=== PATIENT | female | born 1985 ===

== ENCOUNTER 2020-10-01 19:49 | Emergency (ER) | payer OTHER ==
[~2020-10-01] VITALS: Ht 165.1 cm; Wt 74.8 kg
--- NOTE | 2020-10-01 20:05 | NUR ---
Dr. Patel at bedside for MSE
[2020-10-01] MEDS ORDERED: GABA600T12 PO (20:08)
[2020-10-01] MEDS ORDERED: KETOROLAC TROMETHAMINE 30 MG INJ ONE (20:22)
[2020-10-01] MEDS: KETOROLAC TROMETHAMINE 30 MG INJ IM ONE (20:30)
[2020-10-01 20:43] LABS: *URINE HCG, QUAL NEGATIVE (NEGATIVE)
--- NOTE | 2020-10-01 20:45 | NUR ---
Pt taken down for x-ray
--- NOTE | 2020-10-01 21:04 | NUR ---
Pt came back from xray, stable condtion.
[2020-10-01] MEDS ORDERED: LIDO30AD10 TD (21:38)
[2020-10-01] MEDS ORDERED: IBUP-1955 PO (21:38)
--- NOTE | 2020-10-01 21:54 | NUR ---
Patient discharged to home in stable condition. Written and verbal after care instructions given. Patient verbalizes understanding of instructions. Patient denies any pain/discomfort. Instructed pt not to drive. Stressed follow up or return to ER for worsening s/s.
[2020-10-01 21:56] VITALS: BP 122/86
== END 2020-10-01 21:52 | disposition home or self-care (01) ==
LOC: ER 19:49
DX: S30.0XXA Contusion of lower back and pelvis, initial encounter (principal); Y35.893A Legal intervention involving other specified means, suspect injured, initial encounter; Y92.89 Other specified places as the place of occurrence of the external cause; S40.022A Contusion of left upper arm, initial encounter; S40.021A Contusion of right upper arm, initial encounter
CPT/HCPCS: 72220; 84703; 96372; 99284; J1885; A4663